=== PATIENT | male | born 1955 | race Caucasian/White ===

== ENCOUNTER → 2021-05-21 07:30 | Outpatient (CLI) | payer MEDICARE, OTHER, SELFPAY ==
--- NOTE | ~2021-05-21 | US_ITS ---
US abdomen complete EXAMINATION: US Abdomen Complete INDICATION: Abnormal labs. PROCEDURE: Realtime High Resolution abdomen ultrasound. COMPARISON: No prior studies for comparison FINDINGS: There are multiple gallstones. No gallbladder wall thickening or pericholecystic fluid. Co mmon bile duct measures 3 mm. Liver echotexture within normal limits without focal mass. Pancreas within normal limits. Pancreati c tail is obscured by bowel gas. Spleen is unremarkeable. Renal echotexture is within normal limits bilaterally without hydronephrosis, contour deforming mass or renal stone. Right kidney measures 10.6 cm. Left kidney measures 10.4 cm. Visualized aspects of the aorta and IVC are within normal limits. Portal vein is patent. No sonograph ic Álvarez's sign indicated by the technologist. IMPRESSION: 1: Cholelithiasis. Reviewed, dictated and finalized at location A. 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
== END ==
PROVIDERS: PCP Family Medicine; Visit Provider Physician Assistant Medical
DX: R79.89 Other specified abnormal findings of blood chemistry (principal); K80.20 Calculus of gallbladder without cholecystitis without obstruction
CPT/HCPCS: 76700

== ENCOUNTER → 2022-11-15 11:02 | Outpatient (CLI) | payer MEDICARE, OTHER, SELFPAY ==
--- NOTE | ~2022-11-15 | XR_ITS ---
EXAMINATION: XR lumbar spine 2-3V DATE: 11/15/2022 11:34 INDICATION: Myalgia, right hip pain TECHNIQUE: Anteroposterior and lateral views of the lumbar spine, and cone-down lateral view of the l umbosacral junction were obtained. COMPARISON: 12/26/2018 FINDINGS: Bone alignment is normal. There is no fracture. The vertebral body heights and intervertebr al disc spaces are maintained. Small degenerative osteophytes project from the anterior endplates of multiple vertebral bodies. There is mild facet joint osteoarthritis of the lower lumbar spine. Calcif ied atherosclerosis is noted. IMPRESSION: 1. Mild lumbar spondylosis without acute findings or significant interval change. Reviewed, dictated and finalized at location B. IMPRESSION: 1. Mild lumbar spondylosis without acute findings or significant interval nino rizo
--- NOTE | ~2022-11-15 | XR_ITS ---
EXAMINATION: XR hip RT min 2V DATE: 11/15/2022 11:34 INDICATION: Myalgia, other site. TECHNIQUE: 2 views of right hip were obtained. COMPARISON: None. FINDINGS: Bone alignment is normal. No fracture. There is mild right hip osteoarthritis. IMPRESSION: 1. Mild right hip osteoarthritis. Reviewed, dictated and finalized at location A.
== END ==
PROVIDERS: PCP Family Medicine; Visit Provider Nurse Practitioner Family
DX: M25.551 Pain in right hip (principal); M16.11 Unilateral primary osteoarthritis, right hip; M79.18 Myalgia, other site; M47.816 Spondylosis without myelopathy or radiculopathy, lumbar region
CPT/HCPCS: 72100; 73502

== ENCOUNTER 2023-07-09 01:21 | Day surgery (SDC) | payer MEDICARE, OTHER, SELFPAY ==
[2023-06-26 09:27] VITALS: BMI 25.1
--- NOTE | 2023-07-06 09:32 | SUR.PREOP ---
Patient called regarding upcoming procedure. Reviewed preop instructions, appointment times, and procedure prep.
[2023-07-09 07:22] VITALS: BP 132/79; PULSE 68; RESP 18; TEMP 36.1; O2SAT 99
[2023-07-09] MEDS: LACTATED RINGERS 1,000 ML 150 ML IV CONT (07:37)
--- NOTE | 2023-07-09 08:06 | PM.HPGS ---
History of Present Illness History of Present Illness Consent: Risks, benefits, and alternatives have been discussed and questions answered. Patient agrees to proceed with procedure. Chief complaint: Personal hx of colonic polyps Narrative: Kalpesh Canseco is a 68 year old male with colon polyp 5 years ago Review of Systems Review of Systems: All systems reviewed & are unremarkable except as noted in HPI and below PMFSH Past Medical History Medical History (Updated 07/09/23 @ 08:08 by Mark Gutierrez MD) BMI 25.0-25.9,adult BMI 26.0-26.9,adult Colon polyp Mixed hyperlipidemia Peripheral polyneuropathy Screen for colon cancer Screening for prostate cancer Skin lesion of face Surgical History Surgical History History of appendectomy Family History Family History Mother Family history of Parkinson's disease Family history of Alzheimer's disease Patient's mother is Acute myocardial infarction Family history of dementia Father Hypertension Cerebrovascular accident Sibling No problems noted. Social History Social History Smoking status: Former smoker Tobacco type: cigarettes Second hand tobacco smoke exposure: Yes Alcohol intake: current Drinks per week: 6 Substance use: never Substance use type: does not use Do You Feel Safe in your Home?: Yes Lack of Transportation: No Lack of Food: Never True Current Housing: I Have Housing Concerned About Future Housing: No Difficulty Paying Gas/Electric Bills: No Difficulty Paying for Meds: No Currently Unemployed: No Education: Trade/Vocational Certificate Difficulty w/ Childcare or Family Care: No Living arrangements: with family Occupation/Education: retired Additional occupation/education comments: sales/service Gender identity (if verbalized by the patient): Male Spiritual care concerns: No Meds Home Medications and Allergies Home Medications Medication Instructions Recorded Confirmed Type valacyclovir 1 gram tablet 2,000 mg PO BID PRN outbreak #4 06/05/22 06/26/23 Rx (Valtrex) tabs meloxicam 15 mg tablet 15 mg PO DAILY #90 tabs 02/28/23 06/26/23 Rx pregabalin 75 mg capsule 75 mg PO BID #60 caps 04/24/23 06/26/23 Rx rosuvastatin 10 mg tablet (Crestor) 10 mg PO DAILY 05/22/23 06/26/23 History gabapentin 300 mg capsule 300 mg PO DAILY 06/26/23 06/26/23 History Allergies Allergy/AdvReac Type Severity Reaction Status Date / Time No Known Allergies Allergy Verified 07/09/23 07:19 Vital Signs Vital Signs - 24 hr 07/09/23 07:22 Temperature 97 F L Pulse Rate 68 Respiratory Rate 18 Blood Pressure 132/79 Pulse Oximetry 99 Oxygen Delivery Room Air Exam Const: General: comfortable and no acute distress HENMT: Face/Nose/Sinus: Normal nares present Eyes: General: appearance normal, both eyes and all related structures Neck: Neck: no JVD Resp: Auscultation: clear to auscultation bilaterally Cardio: Rate: regular rate Rhythm: regular rhythm GI: Inspection: non-distended GI Palp: Yes Soft to palpation Skin: General skin exam: normal color Neuro: General: gait normal Speech: normal speech Extrem: General: normal to inspection Psych: Mental Status: mental status grossly normal Assessment and Plan Assessment and plan (1) Colon polyp: Code(s): K63.5 - Polyp of colon Status: Acute Assessment and Plan: colonoscopy
--- NOTE | 2023-07-09 08:09 | WPDANESEPPF ---
Anes - Initial Pre Proc Eval Procedure: Operation Date: 07/09/23 08:30 Proposed Procedures p Colonoscopy - Mark Gutierrez MD Date/Time: 07/09/23 08:09 Surgeon: Mark Gutierrez MD Pre Op Diagnosis: Personal hx of colonic polyps Patient Data Age: 68 Gender: M Height: 1.85 m Weight: 87.1 kg Last Vital Signs Temp 97 F L 07/09/23 07:22 Pulse 68 07/09/23 07:22 Resp 18 07/09/23 07:22 BP 132/79 07/09/23 07:22 Pulse Ox 99 07/09/23 07:22 O2 Del Method Room Air 07/09/23 07:22 Allergies Allergy/AdvReac Type Severity Reaction Status Date / Time No Known Allergies Allergy Verified 07/09/23 07:19 Home Medications Medication Instructions Recorded Confirmed Type valacyclovir 1 gram tablet 2,000 mg PO BID PRN outbreak #4 06/05/22 06/26/23 Rx (Valtrex) tabs meloxicam 15 mg tablet 15 mg PO DAILY #90 tabs 02/28/23 06/26/23 Rx pregabalin 75 mg capsule 75 mg PO BID #60 caps 04/24/23 06/26/23 Rx rosuvastatin 10 mg tablet (Crestor) 10 mg PO DAILY 05/22/23 06/26/23 History gabapentin 300 mg capsule 300 mg PO DAILY 06/26/23 06/26/23 History Patient hx anesthesia problems: none Family hx anesthesia problems: none Results Review: All pre-operative results and documents have been reviewed as part of the pre-operative evaluation. [facility] Past Medical History Medical History (Updated 07/09/23 @ 08:08 by Mark Gutierrez MD) BMI 25.0-25.9,adult BMI 26.0-26.9,adult Colon polyp Mixed hyperlipidemia Peripheral polyneuropathy Screen for colon cancer Screening for prostate cancer Skin lesion of face Surgical History Surgical History History of appendectomy Family History Family History Mother Family history of Parkinson's disease Family history of Alzheimer's disease Patient's mother is Acute myocardial infarction Family history of dementia Father Hypertension Cerebrovascular accident Sibling No problems noted. Social History Social History Smoking status: Former smoker Tobacco type: cigarettes Second hand tobacco smoke exposure: Yes Alcohol intake: current Drinks per week: 6 Substance use: never Substance use type: does not use Do You Feel Safe in your Home?: Yes Lack of Transportation: No Lack of Food: Never True Current Housing: I Have Housing Concerned About Future Housing: No Difficulty Paying Gas/Electric Bills: No Difficulty Paying for Meds: No Currently Unemployed: No Education: Trade/Vocational Certificate Difficulty w/ Childcare or Family Care: No Living arrangements: with family Occupation/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 Informed Consent: The patient's anesthetic plan and its attendant risks and benefits were discussed with the patient/family/POA. Questions were solicited and answers provided to the satisfaction of the patient/family/POA.
[2023-07-09 08:24] VITALS: BP 107/66; PULSE 64; RESP 20; O2SAT 100
[2023-07-09 08:34] VITALS: BP 115/78; PULSE 60; RESP 15; O2SAT 100
[2023-07-09 08:44] VITALS: BP 137/85; PULSE 61; RESP 24; O2SAT 100
== END 2023-07-09 08:47 | disposition home or self-care (01) ==
PROVIDERS: PCP Family Medicine; Visit Provider Internal Medicine Gastroenterology
PROC: 0DJD8ZZ Inspection of Lower Intestinal Tract, Via Natural or Artificial Opening Endoscopic (ICD-10-PCS; CPT 45378; principal; 2023-07-09 08:30)
DX: Z12.11 Encounter for screening for malignant neoplasm of colon (principal); K64.8 Other hemorrhoids; K57.30 Diverticulosis of large intestine without perforation or abscess without bleeding; E78.2 Mixed hyperlipidemia; Z98.890 Other specified postprocedural states; Z87.891 Personal history of nicotine dependence; Z86.010 Personal history of colon polyps; Z82.49 Family history of ischemic heart disease and other diseases of the circulatory system
CPT/HCPCS: G0105; J2704; J7120